=== PATIENT | male | born 1955 | race Caucasian/White ===

== ENCOUNTER 2016-10-03 17:52 | Observation (INO) | payer MEDICARE, OTHER ==
[~2016-10-03] VITALS: Ht 157.5 cm; Wt 51.3 kg
[~2016-10-03 17:52] MED LIST: ASPI-1093 PO; CALC25 PO; CARV25 PO; LOSA25TA21 PO; PANT40TA25 PO; PRAS10TA6 PO; PRAV40 PO
[2016-10-03 18:17] LABS: GLUCOSE,POINT OF CARE 221 MG/DL (70-110)
[2016-10-03 19:02] LABS: BASOPHILS % (AUTO) 0.3 % (0.0-2.0); EOSINOPHILS % (AUTO) 2.9 % (1.0-6.0); HEMATOCRIT 23.1 % (41-53); LYMPHOCYTES # (AUTO) 1.8 K/uL (1.0-4.8); LYMPHOCYTES % (AUTO) 21.6 % (22.0-44.0); MEAN CORPUSCULAR HEMOGLOBIN 36.3 pg (26.0-34.0); MEAN CORPUSCULAR HGB CONC 34.7 G/dL (31.0-37.0); MEAN CORPUSCULAR VOLUME 105 fL (80-100); MONOCYTES # (AUTO) 0.6 K/uL (0.1-1.0); MONOCYTES % (AUTO) 7.9 % (2.0-9.0); NEUTROPHILS # (AUTO) 5.5 K/uL (1.8-7.7); NEUTROPHILS % (AUTO) 67.3 % (40.0-70.0); RED CELL DISTRIBUTION WIDTH 16.1 % (11.5-14.5); WHITE BLOOD COUNT (AUTO) 8.2 K/uL (4.5-11.0)
[2016-10-03 19:08] LABS: ANION GAP 13 mmol/L (8-16); CALCIUM, TOTAL 9.5 mg/dL (8.8-10.5); CARBON DIOXIDE 27 mmol/L (22-29); CHLORIDE 97 mmol/L (98-107); GLOMERULAR FILTR. RATE CALC 4 mL/min (>60); SODIUM SERUM 137 mmol/L (136-145); UREA NITROGEN, BLOOD 79 mg/dL (7-18)
[2016-10-03 19:10] LABS: PROTHROMBIN TIME 10.9 SEC (9.4-11.6)
[2016-10-03 19:33] LABS: ALANINE AMINOTRANSFERASE 26 U/L (12-78); ALBUMIN 3.1 g/dL (3.4-5.0); ASPARTATE AMINOTRANSFERASE 15 U/L (15-37); BILIRUBIN,TOTAL 0.4 mg/dL (0.1-1.0); CREATINE KINASE, TOTAL 90 U/L (39-308); TOTAL PROTEIN, SERUM 6.7 g/dL (6.4-8.2)
[2016-10-03 19:48] LABS: PLATELET COUNT (AUTO) 44 K/uL (150-450); RBC MORPHOLOGY COMMENT ABNORMAL RBC MORPH
[2016-10-03] MEDS ORDERED: ONDANSETRON HCL 4 MG/2 ML VIAL IVP PRN ×2 (20:15→23:45)
[2016-10-03] MEDS ORDERED: ACETAMINOPHEN 325 MG TABLET PO PRN ×2 (20:15→23:45)
[2016-10-03] MEDS ORDERED: 0.9% SODIUM CHLORIDE 10 ML SYRINGE IVP PRN (20:15)
[2016-10-03 21:15] VITALS: BP 149/86
[2016-10-03 23:37] VITALS: BP 154/79
[2016-10-03] MEDS ORDERED: ALBUTEROL SULFATE 2.5 MG/0.5 ML NEB SOLUTION NEB PRN (23:45)
[2016-10-03] MEDS ORDERED: MAGNESIUM HYDROXIDE SUSPENSION 30 ML UDCUP PO PRN (23:45)
[2016-10-03] MEDS ORDERED: IPRATROPIUM BROMIDE 0.5 MG/2.5 ML NEB SOLUTION NEB PRN (23:45)
[2016-10-03] MEDS ORDERED: ZOLPIDEM TARTRATE 5 MG TABLET PO PRN (23:45)
[2016-10-04 04:30] VITALS: BP 133/76
[2016-10-04 06:18] LABS: BASOPHILS % (AUTO) 0.4 % (0.0-2.0); EOSINOPHILS % (AUTO) 2.8 % (1.0-6.0); HEMOGLOBIN 7.3 g/dL (13.5-17.5); LYMPHOCYTES # (AUTO) 2.4 K/uL (1.0-4.8); LYMPHOCYTES % (AUTO) 26.7 % (22.0-44.0); MEAN CORPUSCULAR HEMOGLOBIN 35.4 pg (26.0-34.0); MEAN CORPUSCULAR HGB CONC 33.2 G/dL (31.0-37.0); MEAN CORPUSCULAR VOLUME 107 fL (80-100); MONOCYTES # (AUTO) 0.8 K/uL (0.1-1.0); MONOCYTES % (AUTO) 8.7 % (2.0-9.0); NEUTROPHILS # (AUTO) 5.5 K/uL (1.8-7.7); NEUTROPHILS % (AUTO) 61.4 % (40.0-70.0); PLATELET COUNT (AUTO) 37 K/uL (150-450); RED BLOOD CELL COUNT(AUTO) 2.06 MIL/uL (4.50-5.90); RED CELL DISTRIBUTION WIDTH 16.1 % (11.5-14.5)
[2016-10-04 06:22] LABS: ALBUMIN 2.8 g/dL (3.4-5.0); BILIRUBIN,TOTAL 0.4 mg/dL (0.1-1.0); CALCIUM, TOTAL 9.3 mg/dL (8.8-10.5); CREATININE 14.25 mg/dL (0.60-1.30); POTASSIUM 3.8 mmol/L (3.5-5.1); TOTAL PROTEIN, SERUM 6.1 g/dL (6.4-8.2)
[2016-10-04 07:01] LABS: RBC MORPHOLOGY COMMENT ABNORMAL RBC MORPH
[2016-10-04 07:42] VITALS: BP 144/76
[2016-10-04] MEDS ORDERED: PANTOPRAZOLE SODIUM 40 MG DR TABLET PO SCH ×2 (09:00)
[2016-10-04] MEDS ORDERED: CALCITRIOL 0.25 MCG CAPSULE PO SCH (09:00)
[2016-10-04] MEDS ORDERED: ASPIRIN 81 MG EC TABLET PO SCH (09:00)
[2016-10-04] MEDS ORDERED: CARVEDILOL 25 MG TABLET PO SCH (09:00)
[2016-10-04] MEDS ORDERED: DOCUSATE SODIUM 100 MG CAPSULE PO SCH (09:00)
[2016-10-04] MEDS ORDERED: LOSARTAN POTASSIUM 25 MG TABLET PO SCH (09:00)
[2016-10-04] MEDS ORDERED: PRAVASTATIN SODIUM 40 MG TABLET PO SCH (09:00)
[2016-10-04] MEDS ORDERED: PRASUGREL HCL 10 MG TABLET PO SCH (09:00)
[2016-10-04] MEDS ORDERED: PNEUMOCOCCAL VACCINE POLYVALENT 0.5 ML VIAL [PPSV23] IM ONE (11:15)
[2016-10-04 11:50] VITALS: BP 134/77
== END 2016-10-04 14:40 | disposition home or self-care (01) ==
LOC: EMS 17:56 → INTOOBSV 20:55 → 5N 20:55
PROVIDERS: ADMIT Hospitalist; ATTEND Hospitalist
DX: I12.0 Hypertensive chronic kidney disease with stage 5 chronic kidney disease or end stage renal disease (principal); N18.6 End stage renal disease; E78.5 Hyperlipidemia, unspecified
CPT/HCPCS: 36415 ×2; 71010; 80053 ×2; 82550; 82553; 82962; 84484 ×2; 85025 ×2; 85610; 93005; 99291 ×2; G0378 ×2